=== PATIENT | female | born 1995 | race Two or more races ===

== ENCOUNTER 2020-08-08 08:26 | Inpatient (IN) | payer OTHER ==
[2020-08-08] MEDS ORDERED: CLINDAMYCIN 900 MG PREMIX IVPB 900 MG/50 ML BAG IVPB ONE ×2 (09:52→17:46)
[2020-08-08] MEDS: DEXTROSE 5%-LACTATED RINGERS 1,000 ML IV SCH ×2 (10:15→17:54)
[2020-08-08] MEDS: CLINDAMYCIN 900 MG PREMIX IVPB 900 MG/50 ML BAG IVPB SCH ×2 (10:15→17:53)
[2020-08-08 11:19] LABS: BASO % 0.4 % (0-2.0); EOS % 0.4 % (0-4.5); HEMATOCRIT 33.5 % (32.4-45.2); HEMOGLOBIN 11.2 GM/dL (10.7-15.3); MCH 29.5 pg (25.7-33.7); MCHC 33.4 g/dl (32.0-36.0); MEAN CELL VOLUME 88.2 fl (80-96); MEAN PLT VOLUME 7.8 fl (7.5-11.1); NEUT % 73.2 % (42.8-82.8); PLATELET COUNT 317 K/MM3 (134-434); RDW 14.6 % (11.6-15.6); WHITE BLOOD COUNT 10.8 K/mm3 (4.0-10.0)
[2020-08-08 11:21] VITALS: BMI 39.3
[2020-08-08 11:28] LABS: INR 1.01 (0.83-1.09); PROTHROMBIN TIME (PATIENT) 12.2 SEC (9.7-13.0)
[2020-08-08 11:30] LABS: ACTIVATED PTT 26.7 SECONDS (25.2-36.5)
[2020-08-08 11:51] LABS: BLOOD UREA NITROGEN 8.4 mg/dL (7-18); CALCIUM 8.7 mg/dL (8.5-10.1)
[2020-08-08 11:56] LABS: CREATININE 0.4 mg/dL (0.55-1.3)
[2020-08-08] MEDS ORDERED: DINOPROSTONE 10 MG VAGINAL SUPPOSITORY VG ONE (12:00)
[2020-08-08] MEDS ORDERED: BUTORPHANOL TARTRATE 1 MG/ML VIAL IVPB ONE (12:38)
[2020-08-08] MEDS ORDERED: PROMETHAZINE HCL 25 MG/1 ML VIAL IVPB ONE (12:39)
[2020-08-08 12:46] LABS: HIV INTERPRETATION NEGATIVE (NEGATIVE)
[2020-08-09] MEDS ORDERED: PROMETHAZINE HCL 25 MG/1 ML VIAL ONE (01:55)
[2020-08-09] MEDS ORDERED: BUTORPHANOL TARTRATE 2 MG/ML VIAL ONE (01:55)
[2020-08-09] MEDS: CLINDAMYCIN 900 MG PREMIX IVPB 900 MG/50 ML BAG IVPB SCH ×2 (02:05→10:30)
[2020-08-09] MEDS ORDERED: CLINDAMYCIN 900 MG PREMIX IVPB 900 MG/50 ML BAG IVPB ONE ×3 (02:06→16:36)
[2020-08-09] MEDS: DEXTROSE 5%-LACTATED RINGERS 1,000 ML IV SCH (03:00)
[2020-08-09] MEDS ORDERED: OXYTOCIN 30 UNITS in 0.9% NS 30 UNIT/500 ML INFUS.BAG IVPB ONE ×2 (06:15→07:00)
[2020-08-09] MEDS ORDERED: FENTANYL/BUPIVACAINE/NS/PF - PCEA - 50 ML DISP.SYRIN EP ONE ×2 (09:20→13:35)
[2020-08-09] MEDS ORDERED: PCA PUMP NR ONE (09:24)
[2020-08-09] MEDS ORDERED: ELECTROLYTE-148 SOLN 500 ML IV SCH ×2 (09:35→10:05)
[2020-08-09] MEDS ORDERED: BUPIVACAINE HCL/PF 0.25% (2.5MG/ML) 10 ML VIAL ONE ×2 (10:01→15:00)
[2020-08-09] MEDS: FENTANYL/BUPIVACAINE/NS/PF - PCEA - 50 ML DISP.SYRIN EP SCH ×2 (10:20→13:38)
[2020-08-09] MEDS ORDERED: NALOXONE HCL 0.4 MG/ML VIAL IVPUSH PRN (10:26)
[2020-08-09] MEDS: ELECTROLYTE-148 SOLN 1,000 ML IV SCH ×2 (10:30→16:25)
[2020-08-09] MEDS ORDERED: morphine SULFATE/PF 0.5 MG/ML (2cc Syringe - QUVA) ONE (16:08)
[2020-08-09] MEDS ORDERED: CEFAZOLIN 2 GM/D5W 2 GM/50 ML ML IVPB ONE (16:11)
[2020-08-09] MEDS ORDERED: OXYTOCIN 20 UNITS in 0.9% NS 20 UNIT/1,000 ML INFUS.BAG IV ONE ×2 (16:11→16:20)
[2020-08-09] MEDS ORDERED: CITRIC ACID/SODIUM CITRATE 30 ML UNIT-DOSE CUP PO ONE (16:34)
[2020-08-09] MEDS ORDERED: PROPOFOL 20 ML ONE (17:08)
[2020-08-09] MEDS ORDERED: OXYTOCIN 10 UNITS/ML VIAL ONE (17:30)
[2020-08-09] MEDS ORDERED: ONDANSETRON 4 MG/2 ML VIAL ONE (18:06)
[2020-08-09] MEDS ORDERED: KETOROLAC TROMETHAMINE 30 MG/1 ML VIAL ONE (18:06)
[2020-08-09] MEDS ORDERED: diphenhydrAMINE HCL 25 MG CAPSULE (FP) PO PRN (18:12)
[2020-08-09] MEDS ORDERED: WITCH HAZEL 50% (TUCKS) 40 PAD/JAR PAD TP PRN (18:12)
[2020-08-09] MEDS ORDERED: BENZOCAINE 20% 57 GM BOTTLE TP PRN (18:12)
[2020-08-09] MEDS ORDERED: IBUPROFEN 800 MG/8 ML IJ IVPB PRN (18:12)
[2020-08-09] MEDS ORDERED: METHYLERGONOVINE MALEATE 0.2 MG/1 ML AMP IM PRN (18:12)
[2020-08-09] MEDS ORDERED: oxyCODONE HCL 5 MG TABLET PO PRN ×2 (18:12)
[2020-08-09] MEDS ORDERED: BENZOCAINE 28 GM HEMORRHOIDAL OINTMENT PR PRN (18:12)
[2020-08-09] MEDS ORDERED: OXYTOCIN 20 UNITS in 0.9% NS 20 UNIT/1,000 ML INFUS.BAG IV SCH (18:15)
[2020-08-09] MEDS ORDERED: DEXTROSE 5%-LACTATED RINGERS 1,000 ML IV SCH (18:15)
[2020-08-09] MEDS ORDERED: ONDANSETRON 4 MG/2 ML VIAL IVPUSH PRN (18:25)
[2020-08-10 07:08] LABS: BASO % 0.2 % (0-2.0); EOS % 0.5 % (0-4.5); HEMATOCRIT 28.9 % (32.4-45.2); HEMOGLOBIN 9.7 GM/dL (10.7-15.3); LYMPH % 18.6 % (8-40); MCH 29.9 pg (25.7-33.7); MCHC 33.7 g/dl (32.0-36.0); MEAN CELL VOLUME 88.8 fl (80-96); MEAN PLT VOLUME 7.8 fl (7.5-11.1); MONO % 7.2 % (3.8-10.2); NEUT % 73.5 % (42.8-82.8); PLATELET COUNT 280 K/MM3 (134-434); RBC 3.26 M/mm3 (3.60-5.2); WHITE BLOOD COUNT 11.7 K/mm3 (4.0-10.0)
[2020-08-10] MEDS: ENOXAPARIN NA (PORCINE) 40 MG/0.4 ML DISP.SYRIN SQ SCH (10:20)
[2020-08-10] MEDS: SIMETHICONE 80 MG TAB.CHEW (FP) PO PRN ×2 (12:50→18:23)
[2020-08-10] MEDS: ACETAMINOPHEN 325 MG TABLET (FP) PO PRN ×2 (12:51→18:23)
[2020-08-10] MEDS ORDERED: BISACODYL 10 MG SUPP.RECT PR PRN (18:12)
[2020-08-10] MEDS: IBUPROFEN 600 MG TABLET (FP) PO PRN (18:23)
[2020-08-11] MEDS: ACETAMINOPHEN 325 MG TABLET (FP) PO PRN ×3 (02:12→20:02)
[2020-08-11] MEDS: SIMETHICONE 80 MG TAB.CHEW (FP) PO PRN ×2 (02:12→20:02)
[2020-08-11] MEDS: IBUPROFEN 600 MG TABLET (FP) PO PRN ×3 (02:13→20:02)
[2020-08-11] MEDS: ENOXAPARIN NA (PORCINE) 40 MG/0.4 ML DISP.SYRIN SQ SCH (09:37)
[2020-08-11] MEDS ORDERED: SENNOSIDES/DOCUSATE COMBO (SENNA PLUS) TABLET (UD) PO PRN (22:00)
[2020-08-12] MEDS: ENOXAPARIN NA (PORCINE) 40 MG/0.4 ML DISP.SYRIN SQ SCH (11:05)
[2020-08-12] MEDS: SIMETHICONE 80 MG TAB.CHEW (FP) PO PRN (11:06)
[2020-08-12] MEDS: ACETAMINOPHEN 325 MG TABLET (FP) PO PRN (11:06)
[2020-08-12] MEDS: IBUPROFEN 600 MG TABLET (FP) PO PRN (11:06)
[2020-08-12 16:34] VITALS: BP 132/77; PULSE 60; TEMP 97.5
== END 2020-08-12 17:35 | disposition home or self-care (01) | DRG 540 ==
LOC: JLDR 08:26 → J3N 08-09 20:38 → J3W 08-11 12:25
PROVIDERS: ADMIT Family Medicine; ATTEND Family Medicine
PROC: 3E0P7VZ Introduction of Hormone into Female Reproductive, Via Natural or Artificial Opening (ICD-10-PCS; 2020-08-08)
PROC: 10D00Z1 Extraction of Products of Conception, Low, Open Approach (ICD-10-PCS; principal; 2020-08-09)
PROC: 3E033VJ Introduction of Other Hormone into Peripheral Vein, Percutaneous Approach (ICD-10-PCS; 2020-08-09)
DX: O61.0 Failed medical induction of labor (principal); O42.92 Full-term premature rupture of membranes, unspecified as to length of time between rupture and onset of labor; O99.214 Obesity complicating childbirth; E66.01 Morbid (severe) obesity due to excess calories; Z3A.37 37 weeks gestation of pregnancy; Z37.0 Single live birth
CPT/HCPCS: 36415; 80048; 85025; 85610; 85730; 86780; 86850; 86900; 86901; 87389; 88307-TC; C9803; U0003; U0005